=== PATIENT | male | born 1980 | race Two or more races ===

== ENCOUNTER 2018-04-02 17:14 | Emergency (ER) | payer OTHER ==
[~2018-04-02] VITALS: Ht 167.6 cm; Wt 90.7 kg
[2018-04-02 17:20] VITALS: BP 117/77
--- NOTE | 2018-04-02 17:25 | Emergency Room Report ---
History of Present Illness General Chief Complaint: Medical Clearance Source: Patient Present Illness HPI Patient presents for a medical clearance for booking Patient was picked up by the police department reportedly had complained of shortness of breath however on questioning here patient reported that he did not feel well Denies any shortness of breath at this time denies any chest pain He reported that he felt weak Denies any vomiting denies any diarrhea denies any recent fevers or chills Allergies: Coded Allergies: No Known Allergies (Unverified , 04/02/18) Patient History Past Medical History: see triage record Pertinent Family History: none Reviewed Nursing Documentation: PMH: Agreed; PSxH: Agreed Nursing Documentation-PMH Past Medical History: No Stated History Review of Systems All Other Systems: negative except mentioned in HPI Physical Exam Vital Signs Date Time Temp Pulse Resp B/P (MAP) Pulse Ox O2 Delivery O2 Flow Rate FiO2 04/02/18 17:10 98.4 96 18 117/77 98 Room Air 98.4 Sp02 EP Interpretation: reviewed, normal General Appearance: no apparent distress Head: normocephalic, atraumatic Eyes: bilateral eye PERRL, bilateral eye EOMI ENT: hearing grossly normal, normal pharynx Neck: full range of motion Respiratory: lungs clear, normal breath sounds Cardiovascular #1: regular rate, rhythm Gastrointestinal: normal bowel sounds, non tender Musculoskeletal: other Neurologic: alert, oriented x3 Skin: other - Somewhat disheveled however oral mucosa appears well-hydrated Lymphatic: no adenopathy Medical Decision Making Diagnostic Impression: Primary Impression: ok to book Additional Impression: medical clearance ER Course Patient has a general medical screening evaluation performed There is no focality to his examination Patient is hemodynamically stable lung sounds are appropriate Unclear if the patient has used any recent drugs Otherwise after thorough evaluation patient appears stable for further booking will follow with the jose Rey in the morning and return to the emergency room with any change in status or change in complaints Last Vital Signs Date Time Temp Pulse Resp B/P (MAP) Pulse Ox O2 Delivery O2 Flow Rate FiO2 04/02/18 17:10 98.4 96 18 117/77 98 Room Air 98.4 Status: improved Disposition: D/C TO LAW ENFORCEMENT IN [facility] Condition: Stable Departure Forms: Retirement Clearance Patient Instructions: Medical Screening Exam Additional Instructions: follow-up jose Rey in the morning Rony Fry DO Apr 02, 2018 17:25
[2018-04-02 17:28] VITALS: BP 117/77
== END 2018-04-02 17:30 ==
LOC: EDBD 17:14 → EMR 17:25
DX: Z02.89 Encounter for other administrative examinations (principal)
CPT/HCPCS: 99283